=== PATIENT | female | born 1970 | race Two or more races ===

== ENCOUNTER 2024-08-06 05:41 | Day surgery (SDC) | payer OTHER ==
[2024-08-01 12:15] VITALS: BP 130/80
[~2024-08-06] VITALS: Ht 154.9 cm; Wt 63.0 kg
[~2024-08-06 05:41] MED LIST: METHOTREXATE2.5 MG PO; ORENCIA125 MG/1 M; SYNTHROID75 MCG PO
[2024-08-06] MEDS ORDERED: CEFAZOLIN SODIUM 1,000 MG VIAL IV ONE ×2 (10:00→10:30)
[2024-08-06] MEDS ORDERED: MORPHINE SULFATE 4 MG/ML VIAL IV ONE ×2 (10:00→11:10)
[2024-08-06] MEDS ORDERED: EPINEPHRINE HCL/PF 1 MG/ML AMPUL IR ONE (10:00)
[2024-08-06] MEDS ORDERED: METHYLPREDNISOLONE ACETATE 80 MG/ML VIAL IJ ONE (10:00)
[2024-08-06] MEDS ORDERED: PROMETHAZINE HCL 25 MG/ML AMPUL IM PRN (10:30)
[2024-08-06] MEDS ORDERED: MEPERIDINE HCL/PF 25 MG/ML VIAL IM PRN (10:30)
[2024-08-06] MEDS ORDERED: DUI500 PO (10:35)
[2024-08-06] MEDS ORDERED: TRAM1TAB98 PO (10:36)
[2024-08-06] MEDS ORDERED: CEFADROXIL 500 MG CAPSULE PO SCH (21:00)
== END 2024-08-06 13:50 | disposition home or self-care (01) ==
LOC: CIR.AMB 05:41
PROVIDERS: ATTEND Orthopaedic Surgery Sports Medicine
DX: S83.242A Other tear of medial meniscus, current injury, left knee, initial encounter (principal); M17.12 Unilateral primary osteoarthritis, left knee; Z88.6 Allergy status to analgesic agent; Z88.8 Allergy status to other drugs, medicaments and biological substances